=== PATIENT | female | born 1980 | race Caucasian/White ===

== ENCOUNTER 2018-04-27 14:32 | Inpatient (IN) | payer SELFPAY ==
--- NOTE | 2018-04-27 17:59 | Emergency Department Report ---
Abscess Boil HPI - HPI Chief Complaint: Skin/Abscess/Foreign Body Stated Complaint: PAIN IN TAILBONE Time Seen by Provider: 04/27/18 17:50 Duration: 2 Days Location: Perianal Severity: Mild History: Yes Pain, No Fever, No Purulent Drainage, No Numbness, No Foreign Body , No Previous History, No Insect Bite HPI: This is a 37-year-old female nontoxic, well nourished in appearance, no acute signs of distress presents to the ED with c/o of perianal pain and swelling 2 days. Patient denies any pus, drainage, fever, chills, nausea, vomiting, chest pain, short of breath, headache or stiff neck. Patient denies any allergies or significant past medical history. Allergies/Adverse Reactions: Allergies Allergy/AdvReac Type Severity Reaction Status Date / Time No Known Allergies Allergy Verified 04/27/18 14:48 ED Review of Systems ROS: Stated complaint: PAIN IN TAILBONE Other details as noted in HPI Constitutional: denies: chills, fever Eyes: denies: eye pain, eye discharge, vision change ENT: denies: ear pain, throat pain Respiratory: denies: cough, shortness of breath, wheezing Cardiovascular: denies: chest pain, palpitations Endocrine: no symptoms reported Gastrointestinal: denies: abdominal pain, nausea, diarrhea Genitourinary: denies: urgency, dysuria, discharge Musculoskeletal: denies: back pain, joint swelling, arthralgia Skin: denies: rash, lesions Neurological: denies: headache, weakness, paresthesias Psychiatric: denies: anxiety, depression Hematological/Lymphatic: denies: easy bleeding, easy bruising ED Past Medical Hx - Past Medical History Previous Medical History?: No - Surgical History Past Surgical History?: No - Social History Smoking Status: Current Every Day Smoker Substance Use Type: Alcohol ED Abscess Boil Physical Exam - Exam General: Vital signs noted. No distress. Alert and acting appropriately. GENERAL: The patient is a well-developed, well-nourished in no apparent distress. Patient is alert and acting appropriately for age. Alert and oriented 3, no apparent distress, normal gait, atraumatic. HEENT: Head is normocephalic and atraumatic. PERRL, Extraocular muscles are intact. Pupils are equal, round, and reactive to light and accommodation. Nares appeared normal. Mouth is well hydrated and without lesions. Mucous membranes are moist. Posterior pharynx clear of any exudate or lesions. Mouth is well hydrated and without lesions. Tonsils not erythematous or swollen. Uvula midline. Tongue elevated. Mucous members are moist. Posterior pharynx clear, no exudate or lesions. Patent airways. NECK: Supple. No carotid bruits. No lymphadenopathy or thyromegaly.nontender. No meningitic signs are noted. LUNGS: Clear to auscultation. Non labor breathing. No intercostal retractions. Symmetrical with respiration, no wheezing, no rales, or crackles. HEART: Regular rate and rhythm without murmur, rubs or gallops. No reproducible. S1, S2 present, regular rate and rhythm without murmur, no rubs, no gallops. ABDOMEN: Soft, nontender, and nondistended. Positive bowel sounds. No hepatosplenomegaly was noted. No guarding or rebound tenderness, negative epigastric bruit. Negative psoas sign, negative goodrich sign, negative McBurneys sign EXTREMITIES: Without any cyanosis, clubbing, rash, lesions or edema. Peripheral pulses intact. Capillary refill less than 2 seconds. Full range of motion bilaterally. NEUROLOGIC: Cranial nerves II through XII are grossly intact. Alert and oriented x 3. Normal gait. Symmetrical strength and sensation. Reflexes 2+ throughout. Cerebellar testing normal. GCS score of 15. PSYCHIATRIC: Normal affect with no suicidal or homicidal ideations. Front/Back of Body, Lg (Color): 1 - 1 cm abscess present Size: 1 cm Exam: Yes Tenderness, Yes Fluctuance, Yes Normal Neurologic Exam, Yes Normal Circulation, No Surrounding Cellulites/Erythema, No Lymphangitis, No Crepitation , No Heart Murmur ED Course Vital Signs 04/27/18 14:46 Temperature 98.7 F Pulse Rate 92 H Respiratory 16 Rate Blood Pressure 118/76 O2 Sat by Pulse 99 Oximetry - Reevaluation(s) Reevaluation #1: 04/27/18 21:24 Patient is speaking in full sentences with no signs of distress noted. - Consultations Consultation #1: 04/27/18 21:24 Patient has been consulted with Dr. Og about patient history, physical exam , and labs/CT results and stated patient has the option to be admitted or to follow-up tomorrow morning outpatient only for a office procedure. Critical care attestation.: If time is entered above; I have spent that time in minutes in the direct care of this critically ill patient, excluding procedure time. ED Medical Decision Making - Lab Data Result diagrams: 04/27/18 18:16 04/27/18 18:16 - Medical Decision Making this is a 37-year-old female that presents with perianal abscess. Patient is stable was examined by me. CT scan has been obtained and indicates that there is fluid collection in the perianal region that is consistent with an abscess. Labs obtained. Patient received clindamycin IV 600 mg. Patient was put on nothing by mouth starting Midnight. Patient was given the opportunity to be discharged as per Dr. Og's request the patient refused and stated she does not want to go home due to the pain and will like to be admitted. Patient is admitted with hospitalist Dr. Mccabe. At time of admission, the patient does not seem toxic or ill in appearance. No acute signs of distress noted. Patient agrees to admission treatment plan of care. No further questions noted by the patient. ED Disposition Clinical Impression: Perianal abscess Disposition: OP ADMIT IP TO THIS HOSP Is pt being admited?: Yes Condition: Stable Referrals: PRIMARY CARE, [Primary Care Provider] - 3-5 Days
[2018-04-27 18:30] LABS: Basophils # (Auto) 0.1 K/mm3 (0.0-0.1); Basophils % (Auto) 0.4 % (0.0-1.8); Eosinophils # (Auto) 0.2 K/mm3 (0.0-0.4); Eosinophils % (Auto) 1.3 % (0.0-4.3); Hematocrit 33.8 % (30.3-42.9); Hemoglobin 12.2 gm/dl (10.1-14.3); Lymphocytes # (Auto) 2.7 K/mm3 (1.2-5.4); Lymphocytes % (Auto) 19.6 % (13.4-35.0); Mean Corpuscular HGB Conc 36 % (30-34); Mean Corpuscular Hemoglobin 35 pg (28-32); Mean Corpuscular Volume 97 fl (79-97); Monocytes # (Auto) 1.3 K/mm3 (0.0-0.8); Monocytes % (Auto) 9.3 % (0.0-7.3); Platelet Count 363 K/mm3 (140-440); Red Cell Distribution Width 12.3 % (13.2-15.2)
[2018-04-27] MEDS ORDERED: CLEOCIN 600 MG/50 mL 600 MG/50 ML BAG IV ONE (18:53)
[2018-04-27] MEDS ORDERED: NACL 0.9% 1000 ML 1,000 ML IV ONE (18:53)
[2018-04-27 19:01] LABS: BUN/Creatinine Ratio 14; Blood Urea Nitrogen 7 mg/dL (7-17); Calcium 9.2 mg/dL (8.4-10.2); Hemolysis Index 7
--- NOTE | 2018-04-27 20:56 | Cat Scan Report ---
FINAL REPORT PROCEDURE: CT PELVIS W CON TECHNIQUE: Computerized axial tomography of the pelvis was performed following the IV injection of iodinated nonionic contrast. HISTORY: perianal swelling r/o abscess COMPARISON: No prior studies are available for comparison. TECHNICAL QUALITY: Satisfactory. FINDINGS: Pelvic viscera including the bowel loops, urinary bladder and reproductive structures are within normal limits. Rectosigmoid is unremarkable. An irregular hypodense fluid collection is noted in the perianal region measuring about 3.1 x 1.9 centimeters consistent with an abscess. There is no lymphadenopathy. Bony structures are within normal limits. IMPRESSION: Fluid collection in the perianal region consistent with an abscess.
[2018-04-27] MEDS ORDERED: ZOFRAN IV ONE (21:23)
[2018-04-27] MEDS ORDERED: MORPHINE IV ONE (21:23)
[2018-04-27] MEDS: NACL 0.9% 1000 ML 1,000 ML ONE ×2 (21:35→21:44)
[2018-04-27] MEDS ORDERED: TYLENOL PO PRN (22:14)
[2018-04-27] MEDS ORDERED: SODIUM CHLORIDE FLUSH SYRINGE 10 ML IV PRN (22:14)
[2018-04-27] MEDS ORDERED: ZOFRAN IV PRN (22:14)
--- NOTE | 2018-04-27 22:17 | History and Physical Report ---
History of Present Illness Date of examination: 04/27/18 History of present illness: 37-year-old woman with no medical problems comes emergency room because she developed a boil on the inner right side of her buttock on . She has difficulty sitting, it brown, she tried to pop it without success. Complaint of fever Review of systems Constitutional: no weight loss, chillS Ears, eyes, nose, mouth and throat: no nasal congestion, no nasal discharge, no sinus pressure, no vision change, no red eye. Neck: No neck pain or rigidity. Cardiovascular: no chest pain, palpitations Respiratory: no cough, shortness of breath Gastrointestinal: no abdominal pain hematochezia Genitourinary : no frequency , no hematuria Musculoskeletal: no joint swelling or muscle ache Integumentary: no rash, no pruritis Neurological: no parathesias, no numbness, no focal weakness Endocrine: no cold or heat intolerance, no polyuria or polydipsia Hematologic/Lymphatic: no easy bruising, no easy bleeding, no gland swelling Allergic/Immunologic: no urticaria, no angioedema. PAST MEDICAL HISTORY: None PAST SURGICAL HISTORY: Enmanuel bragg SOCIAL HISTORY: No alcohol, no drugs, 4 cigarettes a day FAMILY HISTORY: Hypertension Medications and Allergies Allergies Allergy/AdvReac Type Severity Reaction Status Date / Time No Known Allergies Allergy Verified 04/27/18 14:48 Active Meds: Active Medications Acetaminophen (Tylenol) 650 mg PO Q4H PRN PRN Reason: Pain MILD(1-3)/Fever >100.5/HERNADEZ Enoxaparin Sodium (Lovenox) 30 mg SUB-Q QDAY LUCINDA Sodium Chloride (Nacl 0.45% 1000 Ml) 1,000 mls @ 75 mls/hr IV DIRECT LUCINDA Piperacillin Sod/Tazobactam Sod (Zosyn/Ns 4.5gm/100ml) 4.5 gm in 100 mls @ 200 mls/hr IV Q8HR LUCINDA; Protocol Morphine Sulfate (Morphine) 2 mg IV Q4H PRN PRN Reason: Pain, Moderate (4-6) Ondansetron HCl (Zofran) 4 mg IV Q4H PRN PRN Reason: Nausea And Vomiting Sodium Chloride (Sodium Chloride Flush Syringe 10 Ml) 10 ml IV BID LUCINDA Sodium Chloride (Sodium Chloride Flush Syringe 10 Ml) 10 ml IV PRN PRN PRN Reason: LINE FLUSH Exam - Physical Exam Narrative exam: Gen. appearance: Patient lying in bed, no apparent distress HEENT: Normocephalic, atraumatic, pupils equally round and reactive to light, extraocular movement intact, and no sclericterus,. No JVD or thyromegaly or nodule,neck supple, no carotid bruit ,mucous membranes moist, no exudate or erythema Heart: S1, S2, regular rate and rhythm Lungs: Clear bilaterally, breathing comfortable Abdomen: Positive bowel sounds, non-tender, nondistended, no organomegaly Extremity:no edema cyanosis, clubbing Skin: Right perirectal area indurated, tender to touch, no rash, dry, warm Neuro: Oriented 3, cranial nerves II-12 intact, speech is fluent, motor and sensory intact - Constitutional Vitals: Temp Pulse Resp BP Pulse Ox 98.7 F 92 H 16 118/76 99 04/27/18 14:46 04/27/18 14:46 04/27/18 14:46 04/27/18 14:46 04/27/18 14:46 Results - Labs CBC & Chem 7: 04/27/18 18:16 04/27/18 18:16 Labs: Abnormal lab results 04/27/18 04/27/18 Range/Units 18:16 18:16 WBC 13.8 H (4.5-11.0) K/mm3 RBC 3.50 L (3.65-5.03) M/mm3 MCH 35 H (28-32) pg MCHC 36 H (30-34) % RDW 12.3 L (13.2-15.2) % [place] % (Auto) 9.3 H (0.0-7.3) % [place] # 1.3 H (0.0-0.8) K/mm3 Seg Neutrophils # 9.6 H (1.8-7.7) K/mm3 Creatinine 0.5 L (0.7-1.2) mg/dL Glucose 118 H (65-100) mg/dL Assessment and Plan Pelvic CT reviewed Assessment Perianal abscess Plan Admit to medicine Start IV Zosyn, consult surgery, obtain cultures IV morphine, DVT prophylaxis
[2018-04-27] MEDS: ZOSYN/NS 4.5GM/100ML 4.5 GM/100 ML VIAL IV SCH (23:42)
[2018-04-27] MEDS: NACL 0.45% 1000 ML 1,000 ML IV SCH (23:46)
[2018-04-28] MEDS: ZOSYN/NS 4.5GM/100ML 4.5 GM/100 ML VIAL IV SCH ×3 (05:51→23:18)
[2018-04-28] MEDS: MORPHINE IV PRN ×3 (05:52→23:20)
[2018-04-28 07:53] LABS: Basophils % (Auto) 0.4 % (0.0-1.8); Eosinophils # (Auto) 0.1 K/mm3 (0.0-0.4); Hematocrit 31.4 % (30.3-42.9); Hemoglobin 10.7 gm/dl (10.1-14.3); Lymphocytes # (Auto) 1.9 K/mm3 (1.2-5.4); Lymphocytes % (Auto) 15.7 % (13.4-35.0); Mean Corpuscular HGB Conc 34 % (30-34); Mean Corpuscular Hemoglobin 33 pg (28-32); Mean Corpuscular Volume 97 fl (79-97); Monocytes # (Auto) 1.3 K/mm3 (0.0-0.8); Monocytes % (Auto) 10.4 % (0.0-7.3); Platelet Count 338 K/mm3 (140-440); Red Blood Count 3.25 M/mm3 (3.65-5.03); Red Cell Distribution Width 12.3 % (13.2-15.2)
[2018-04-28 07:57] LABS: BUN/Creatinine Ratio 10; Blood Urea Nitrogen 6 mg/dL (7-17); Hemolysis Index 1
[2018-04-28] MEDS ORDERED: XYLOCAINE TOPICAL 4% TP PRN (08:00)
--- NOTE | 2018-04-28 09:12 | Progress Note ---
Assessment and Plan Assessment and plan: [facility] see for possible incision and drainage Leukocytosis due to manasa-anal abscess FULL CODE STATUS History Interval history: pain, abscess right buttocks Hospitalist Physical - Constitutional Vitals: Temp Pulse Resp BP Pulse Ox 98.8 F 89 18 114/79 98 04/28/18 05:50 04/28/18 05:50 04/28/18 06:22 04/28/18 05:50 04/28/18 05:50 General appearance: Present: no acute distress - EENT Eyes: Present: PERRL ENT: hearing intact, clear oral mucosa - Neck Neck: Present: supple, normal ROM - Respiratory Respiratory effort: normal Respiratory: bilateral: CTA, negative: diminished, rales, rhonchi, wheezing - Cardiovascular Rhythm: regular Heart Sounds: Present: S1 & S2 (s1 and s2 reg, no murmurs) - Extremities Extremities: no ischemia, No edema, normal temperature, normal color - Abdominal General gastrointestinal: soft, non-tender, non-distended, normal bowel sounds - Psychiatric Psychiatric: appropriate mood/affect, intact judgment & insight - Neurologic Neurologic: moves all extremities, other (AAO x 3) - Additional findings Additional findings: Erythema, tender,fluctuant area right manasa-anal region. Results - Labs CBC & Chem 7: 04/29/18 05:43 04/28/18 07:01 Labs: Laboratory Last Values WBC 12.2 K/mm3 (4.5-11.0) H 04/28/18 07:01 RBC 3.25 M/mm3 (3.65-5.03) L 04/28/18 07:01 Hgb 10.7 gm/dl (10.1-14.3) 04/28/18 07:01 Hct 31.4 % (30.3-42.9) 04/28/18 07:01 MCV 97 fl (79-97) 04/28/18 07:01 MCH 33 pg (28-32) H 04/28/18 07:01 MCHC 34 % (30-34) 04/28/18 07:01 RDW 12.3 % (13.2-15.2) L 04/28/18 07:01 Plt Count 338 K/mm3 (140-440) 04/28/18 07:01 Lymph % (Auto) 15.7 % (13.4-35.0) 04/28/18 07:01 [place] % (Auto) 10.4 % (0.0-7.3) H 04/28/18 07:01 Eos % (Auto) 1.0 % (0.0-4.3) 04/28/18 07:01 Baso % (Auto) 0.4 % (0.0-1.8) 04/28/18 07:01 Lymph # 1.9 K/mm3 (1.2-5.4) 04/28/18 07:01 [place] # 1.3 K/mm3 (0.0-0.8) H 04/28/18 07:01 Eos # 0.1 K/mm3 (0.0-0.4) 04/28/18 07:01 Baso # 0.0 K/mm3 (0.0-0.1) 04/28/18 07:01 Seg Neutrophils % 72.5 % (40.0-70.0) H 04/28/18 07:01 Seg Neutrophils # 8.8 K/mm3 (1.8-7.7) H 04/28/18 07:01 Sodium 142 mmol/L (137-145) 04/28/18 07:01 Potassium 4.2 mmol/L (3.6-5.0) 04/28/18 07:01 Chloride 105.6 mmol/L (98-107) 04/28/18 07:01 Carbon Dioxide 24 mmol/L (22-30) 04/28/18 07:01 Anion Gap 17 mmol/L 04/28/18 07:01 BUN 6 mg/dL (7-17) L 04/28/18 07:01 Creatinine 0.6 mg/dL (0.7-1.2) L 04/28/18 07:01 Estimated GFR > 60 ml/min 04/28/18 07:01 BUN/Creatinine Ratio 10 % 04/28/18 07:01 Glucose 93 mg/dL (65-100) 04/28/18 07:01 Calcium 8.0 mg/dL (8.4-10.2) L 04/28/18 07:01 HCG, Qual Negative (Negative) 04/27/18 18:16
[2018-04-28] MEDS ORDERED: LOVENOX SUB-Q SCH (10:00)
[2018-04-28] MEDS: SODIUM CHLORIDE FLUSH SYRINGE 10 ML IV SCH ×2 (12:44→23:18)
[2018-04-28] MEDS ORDERED: XYLOCAINE 1% 20 mL ONE (13:07)
[2018-04-28] MEDS ORDERED: XYLOCAINE 1% MPF 5 mL INFILTRATI ONE (13:31)
--- NOTE | 2018-04-28 15:19 | Consultation ---
History of Present Illness Consult date: 04/28/18 Reason for consult: other (perianal abscess) Requesting physician: DANII ISRAEL Chief complaint: anal pain - History of present illness History of present illness: 37-year-old female presents to the emergency room with a two-day history of anal pain. She's never had anything once before. Has had fevers and chills. Denies any drainage. Has had some mild nausea. Patient was assessed to have a perianal abscess and admitted to medicine. Surgery was consult for further evaluation treatment. Denies any prior surgeries to that area. Past History Past Medical History: No medical history Past Surgical History: Other (abdominoplasty) Social history: smoking. denies: alcohol abuse, prescription drug abuse Family history: hypertension Medications and Allergies Allergies Allergy/AdvReac Type Severity Reaction Status Date / Time No Known Allergies Allergy Verified 04/27/18 14:48 Home Medications Medication Instructions Recorded Confirmed Last Taken Type RX: No Known Home Medications [No 04/28/18 04/28/18 Unknown History Reported Home Medications] Active Meds: Active Medications Acetaminophen (Tylenol) 650 mg PO Q4H PRN PRN Reason: Pain MILD(1-3)/Fever >100.5/HERNADEZ Sodium Chloride (Nacl 0.45% 1000 Ml) 1,000 mls @ 75 mls/hr IV DIRECT LUCINDA Last Admin: 04/27/18 23:46 Dose: 75 mls/hr Piperacillin Sod/Tazobactam Sod (Zosyn/Ns 4.5gm/100ml) 4.5 gm in 100 mls @ 200 mls/hr IV Q8HR LUCINDA; Protocol Last Admin: 04/28/18 14:57 Dose: 200 mls/hr Morphine Sulfate (Morphine) 2 mg IV Q4H PRN PRN Reason: Pain, Moderate (4-6) Last Admin: 04/28/18 12:37 Dose: 2 mg Ondansetron HCl (Zofran) 4 mg IV Q4H PRN PRN Reason: Nausea And Vomiting Last Admin: 04/28/18 05:52 Dose: 4 mg Sodium Chloride (Sodium Chloride Flush Syringe 10 Ml) 10 ml IV BID LUCINDA Last Admin: 04/28/18 12:44 Dose: 10 ml Sodium Chloride (Sodium Chloride Flush Syringe 10 Ml) 10 ml IV PRN PRN PRN Reason: LINE FLUSH Review of Systems - Constitutional fever, chills, no sweats, no chronic pain - Cardiovascular no chest pain - Respiratory no cough, no shortness of breath - Gastrointestinal nausea, no abdominal pain, no vomiting, no BRBPR - Genitourinary Genitourinary: no pelvic pain, no dysuria - Muskuloskeletal no low back pain - Integumentary boils Exam Vital Signs Temp Pulse Resp BP Pulse Ox 98.7 F 92 H 16 118/76 99 04/27/18 14:46 04/27/18 14:46 04/27/18 14:46 04/27/18 14:46 04/27/18 14:46 - General physical appearance Positive: no distress - Eyes Positive: normal occular movement - Respiratory Positive: normal expansion, normal respiratory effort, clear to auscultation - Cardiovascular Rhythm: regular - Rectum Rectum: mass (Moderate sized perianal mass noted at 7 o'clock that was tender. No overlying erythema, but the adjacent buttock had a large area of erythema and was tender. No active drainage. ) - Neurologic Neurologic: alert and oriented to time, place and person, motor strength and sensation are grossly intact - Psychiatric Psychiatric: appropriate mood/affect, intact judgment & insight Results - Labs 04/28/18 07:01 04/28/18 07:01 Abnormal lab results 04/27/18 04/27/18 04/28/18 Range/Units 18:16 18:16 07:01 WBC 13.8 H 12.2 H (4.5-11.0) K/mm3 RBC 3.50 L 3.25 L (3.65-5.03) M/mm3 MCH 35 H 33 H (28-32) pg MCHC 36 H (30-34) % RDW 12.3 L 12.3 L (13.2-15.2) % [place] % (Auto) 9.3 H 10.4 H (0.0-7.3) % [place] # 1.3 H 1.3 H (0.0-0.8) K/mm3 Seg Neutrophils % 72.5 H (40.0-70.0) % Seg Neutrophils # 9.6 H 8.8 H (1.8-7.7) K/mm3 BUN (7-17) mg/dL Creatinine 0.5 L (0.7-1.2) mg/dL Glucose 118 H (65-100) mg/dL Calcium (8.4-10.2) mg/dL 04/28/18 Range/Units 07:01 WBC (4.5-11.0) K/mm3 RBC (3.65-5.03) M/mm3 MCH (28-32) pg MCHC (30-34) % RDW (13.2-15.2) % [place] % (Auto) (0.0-7.3) % [place] # (0.0-0.8) K/mm3 Seg Neutrophils % (40.0-70.0) % Seg Neutrophils # (1.8-7.7) K/mm3 BUN 6 L (7-17) mg/dL Creatinine 0.6 L (0.7-1.2) mg/dL Glucose (65-100) mg/dL Calcium 8.0 L (8.4-10.2) mg/dL Diabetes panel 04/27/18 04/28/18 Range/Units 18:16 07:01 Sodium 137 142 (137-145) mmol/L Potassium 4.3 4.2 (3.6-5.0) mmol/L Chloride 99.8 105.6 (98-107) mmol/L Carbon Dioxide 25 24 (22-30) mmol/L BUN 7 6 L (7-17) mg/dL Creatinine 0.5 L 0.6 L (0.7-1.2) mg/dL Glucose 118 H 93 (65-100) mg/dL Calcium 9.2 8.0 L (8.4-10.2) mg/dL Calcium panel 04/27/18 04/28/18 Range/Units 18:16 07:01 Calcium 9.2 8.0 L (8.4-10.2) mg/dL Pituitary panel 04/27/18 04/28/18 Range/Units 18:16 07:01 Sodium 137 142 (137-145) mmol/L Potassium 4.3 4.2 (3.6-5.0) mmol/L Chloride 99.8 105.6 (98-107) mmol/L Carbon Dioxide 25 24 (22-30) mmol/L BUN 7 6 L (7-17) mg/dL Creatinine 0.5 L 0.6 L (0.7-1.2) mg/dL Glucose 118 H 93 (65-100) mg/dL Calcium 9.2 8.0 L (8.4-10.2) mg/dL Adrenal panel 04/27/18 04/28/18 Range/Units 18:16 07:01 Sodium 137 142 (137-145) mmol/L Potassium 4.3 4.2 (3.6-5.0) mmol/L Chloride 99.8 105.6 (98-107) mmol/L Carbon Dioxide 25 24 (22-30) mmol/L BUN 7 6 L (7-17) mg/dL Creatinine 0.5 L 0.6 L (0.7-1.2) mg/dL Glucose 118 H 93 (65-100) mg/dL Calcium 9.2 8.0 L (8.4-10.2) mg/dL - Imaging CT scan - pelvis: report reviewed, image reviewed Assessment and Plan - Patient Problems (1) Perianal abscess Current Visit: Yes Status: Acute Plan to address problem: Pt stable. Pt assessed to have a perianal abscess. Procedure, risks, benefits, alternatives were discussed with the patient questions were answered. Patient elected to have a incision and drainage. Consent was obtained. Procedure was performed at the bedside. Large amount of purulent material was drained. 2nd incision was done as she reported second area of tenderness that appear to have some fluctuance. Minimal fluid was found at that location. Both areas were packed. Rec: 1) d/c home later today 2) Sitz baths after each BM and at least BID 3) Pack wounds at least BID 4) 1 week off of work 5) f/u with me in 1 week prior to work excuse expiring. Time=30min consult; 20min procedure
--- NOTE | 2018-04-28 15:30 | Procedure Note ---
Date of procedure: 04/28/18 Pre-op diagnosis: Perianal abscess Post-op diagnosis: same Procedure: Incision and drainage Anesthesia: local Surgeon: ROSALVA CHOUDHURY Estimated blood loss: minimal Pathology: none Condition: stable Disposition: floor
[2018-04-28] MEDS: NACL 0.45% 1000 ML 1,000 ML IV SCH (18:53)
[2018-04-29] MEDS: ZOSYN/NS 4.5GM/100ML 4.5 GM/100 ML VIAL IV SCH ×2 (05:47→13:36)
[2018-04-29 06:12] LABS: Hematocrit 31.9 % (30.3-42.9); Hemoglobin 10.9 gm/dl (10.1-14.3); Mean Corpuscular HGB Conc 34 % (30-34); Mean Corpuscular Hemoglobin 33 pg (28-32); Mean Corpuscular Volume 98 fl (79-97); Platelet Count 359 K/mm3 (140-440); Red Blood Count 3.26 M/mm3 (3.65-5.03)
[2018-04-29] MEDS: NACL 0.45% 1000 ML 1,000 ML IV SCH (10:44)
[2018-04-29] MEDS: SODIUM CHLORIDE FLUSH SYRINGE 10 ML IV SCH (10:50)
--- NOTE | 2018-04-29 11:50 | Discharge Summary ---
Providers - Providers Date of Admission: 04/27/18 22:14 Date of discharge: 04/29/18 Attending physician: DANII ISRAEL 04/27/18 21:40 Consult to Physician [CONS] Stat Comment: Practioner Sebastian spoke with Dr. Choudhury @ [phone] Consulting Provider: ROSALVA CHOUDHURY Physician Instructions: Reason For Exam: perianal abscess Primary care physician: [employer]LECTION SPECIALIST Hospitalization Condition: Fair Disposition: DC-01 TO HOME OR SELFCARE Core Measure Documentation - Palliative Care Palliative Care/ Comfort Measures: Not Applicable - Core Measures Any of the following diagnoses?: none Exam - Constitutional Vitals: Temp Pulse Resp BP Pulse Ox 98.3 F 58 L 18 92/50 98 04/29/18 06:15 04/29/18 06:15 04/29/18 06:15 04/29/18 06:15 04/29/18 06:15 Plan Activity: advance as tolerated Diet: regular Additional Instructions: 1.Follow up with PCP or [facility] in [address] Choudhury, Surgeon in 1 week. 3.Change packing twicwe daily. 4.Sitz bath twice a day. 4.May return to work in 1 week on 05/06/18 Follow up with: PRIMARY CARE, [Primary Care Provider] - 3-5 Days Prescriptions: Amoxicillin/Potassium Clav [Augmentin 875-125 Tablet] 1 each PO BID 7 Days tablet traMADol [Ultram 50 MG tab] 50 mg PO Q6HR PRN #10 tablet PRN Reason: Pain
[2018-04-29 13:43] VITALS: BP 107/75
--- NOTE | 2018-04-29 15:16 | Progress Note ---
Assessment and Plan - Patient Problems (1) Perianal abscess Current Visit: Yes Status: Acute Plan to address problem: Pt stable. s/p I&D of perianal abscess. Dressing changed. Wounds are clean. Ok to d/c home. 1) d/c home 2) Sitz baths at least BID 3) Wound packing at least BID 4) work release for 1 week 5) f/u 1 week Subjective Date of service: 04/29/18 Patient Reports: Positive: no new complaints, feels better, pain is less Objective Vital Signs - 12hr 04/29/18 04/29/18 06:15 13:02 Temperature 98.3 F 98.3 F Pulse Rate 58 L 91 H Respiratory 18 20 Rate Blood Pressure 92/50 107/75 O2 Sat by Pulse 98 98 Oximetry - General physical appearance no distress, no pain, other (standing at bedside) - Eyes normal occular movement - Respiratory normal expansion, normal respiratory effort - Rectum other (Much less perianal swelling. right buttock erythema is present (stable) - nontender now. No drainage seen from either wound. ) - Labs 04/29/18 05:43 04/28/18 07:01
== END 2018-04-29 16:05 | disposition home or self-care (01) | DRG 349 ==
LOC: ED 14:32 → 3A 22:14
PROVIDERS: ADMIT Internal Medicine; ATTEND Internal Medicine
PROC: 0D9Q0ZZ Drainage of Anus, Open Approach (ICD-10-PCS; principal; 2018-04-28)
DX: K61.0 Anal abscess (principal); F17.200 Nicotine dependence, unspecified, uncomplicated; Z82.49 Family history of ischemic heart disease and other diseases of the circulatory system
CPT/HCPCS: 36415; 72193; 80048; 84703; 85025; 85027; 87040; 96361; 96365; 96375; 99406; J2270; J2405; J2543; J7030; Q9967